=== PATIENT | male | born 1965 | race Caucasian/White ===

== ENCOUNTER 2017-02-27 13:35 | Observation (INO) | payer MEDICAID, OTHER ==
[~2017-02-27 13:35] MED LIST: DULO20 PO; MONT4CHW2; PRAV10 PO
[2017-02-27 13:41] VITALS: BP 167/107; PULSE 83; RESP 18; TEMP 97.9; O2SAT 97
[2017-02-27] MEDS ORDERED: ASPIRIN 81 MG CHEW TAB PO ONE (14:00)
--- NOTE | 2017-02-27 14:32 | RADRPT ---
EXAM DATE/TIME: 02/27/2017 14:13 [place] COMPARISON: No previous studies available for comparison. INDICATIONS : Chest pain. Patient complains of chest pain, right arm pain, dizziness, shortness of breath. MEDICAL HISTORY : Hypertension. SURGICAL HISTORY : None. ENCOUNTER: Initial ACUITY: 4 - 6 months PAIN SCORE: 7/10 LOCATION: Bilateral chest FINDINGS: Portable AP view of the chest demonstrates a normal-sized cardiac silhouette. No effusion, consolidat ion, or pneumothorax is visualized. The bones and soft tissues demonstrate no acute abnormality. CONCLUSION: No acute cardiopulmonary abnormality is identified. Willard Parry MD on February 27, 2017 at 14:30 Board Certified Radiologist. This report was verified electronically.
[2017-02-27 14:50] LABS: AUTOMATED NEUTROPHIL # 4.5 TH/MM3 (1.8-7.7); BASOPHIL % 0.5 % (0.0-2.0); EOSINOPHIL # 0.4 TH/MM3 (0-0.4); EOSINOPHIL % 4.7 % (0.0-4.0); HEMATOCRIT 46.3 % (39.0-51.0); HEMO FLAGS DIFF FINAL; LYMPH % 31.6 % (9.0-44.0); LYMPHOCYTE # 2.7 TH/MM3 (1.0-4.8); MEAN CELL VOLUME 88.1 FL (80.0-100.0); MEAN CORPUSCULAR HGB CONC 34.1 % (32.0-36.0); NEUT % 53.2 % (16.0-70.0); PLATELET COUNT 222 TH/MM3 (150-450); RED BLOOD COUNT 5.25 MIL/MM3 (4.50-5.90); RED CELL DISTRIBUTION WIDTH 13.3 % (11.6-17.2); WHITE BLOOD COUNT 8.4 TH/MM3 (4.0-11.0)
[2017-02-27 15:08] LABS: ANION GAP 4 MEQ/L (5-15); BICARBONATE 31.4 MEQ/L (21.0-32.0); BLOOD UREA NITROGEN 15 MG/DL (7-18); CHLORIDE 102 MEQ/L (98-107); CREATINE KINASE 96 U/L (39-308); GLOMERULAR FILTRATION RATE 83 ML/MIN (>89); MAGNESIUM 2.3 MG/DL (1.5-2.5); POTASSIUM 4.3 MEQ/L (3.5-5.1); SODIUM (NA) 137 MEQ/L (136-145)
[2017-02-27 15:09] LABS: APTT (PATIENT) 26.4 SEC (24.3-30.1); PROTHROMBIN TIME - PATIENT 11.1 SEC (9.8-11.6)
[2017-02-27] MEDS ORDERED: PRAV40TA2 PO (15:59)
[2017-02-27] MEDS ORDERED: SODIUM CHLORIDE 0.9% FLUSH 10 ML FLUSH IV FLUSH PRN (16:30)
--- NOTE | 2017-02-27 16:30 | PD ---
HPI . Right arm pain Chief Complaint: Chest Pain Time Seen by Provider: 16:02 Travel History International Travel<30 days: No Contact w/Intl Traveler<30days: No Traveled to known affect area: No History of Present Illness HPI Patient presents with chief complaint of right arm and right upper chest pain. Onset was in August. He states that he was exerting himself at the time. The pain subsided. He subsequently followed up with his primary care provider who instructed him to present to the emergency department if the pain recurred. He states that he has had frequent episodes of right arm and right upper chest pain all with exertion within the last week or 2. He states that it was especially bad last night and that he had associated nausea, dizziness and diaphoresis. He is currently pain-free. The patient states that he was found to have borderline hypertension by his primary care provider. He has been monitoring his blood pressure. His blood pressure has been running approximately 140/90. The patient reports a strong family history for coronary artery disease. [facility] Past Medical History Triglycerides - High: Yes Social History Alcohol Use: Yes (frequently) Tobacco Use: No Substance Use: No Allergies-Medications (Allergen,Severity, Reaction): Coded Allergies: No Known Allergies (Unverified , 10/26/11) Reported Meds & Prescriptions Reported Meds & Active Scripts Active Reported Pravastatin 40 Mg Tab 40 Mg PO DAILY Review of Systems Except as stated in HPI: all other systems reviewed are Neg General / Constitutional: Positive: Other (diaphoresis) HENT: Positive: Lightheadedness Cardiovascular: Positive: Chest Pain or Discomfort Gastrointestinal: Positive: Nausea Physical Exam Narrative GENERAL: Healthy-appearing man in no acute distress. SKIN: warm/dry. HEAD: Normocephalic. Atraumatic. EYES: Pupils equal and round. No scleral icterus. No injection or drainage. ENT: No nasal bleeding or discharge. Mucous membranes pink and moist. NECK: Trachea midline. Full range of motion without pain.. CARDIOVASCULAR: Regular rate and rhythm. Heart sounds normal. RESPIRATORY: No accessory muscle use. Clear to auscultation. Breath sounds equal bilaterally. GASTROINTESTINAL: Abdomen soft. Nontender. Bowel sounds present. Nondistended. MUSCULOSKELETAL: No obvious deformities. NEUROLOGICAL: Awake and alert. No obvious cranial nerve deficits. Motor grossly within normal limits. Normal speech. PSYCHIATRIC: Appropriate mood and affect; insight and judgment normal. Data Data Last Documented VS Vital Signs Date Time Temp Pulse Resp B/P (MAP) Pulse Ox O2 Delivery O2 Flow Rate FiO2 02/27/17 15:57 77 18 98 Room Air 02/27/17 13:41 97.9 167/107 (127) Orders Orders Electrocardiogram (02/27/17 13:56) Basic Metabolic Panel (Bmp) (02/27/17 13:56) Ckmb (Isoenzyme) Profile (02/27/17 13:56) Complete Blood Count With Diff (02/27/17 13:56) Magnesium (Mg) (02/27/17 13:56) Prothrombin Time / Inr (Pt) (02/27/17 13:56) Act Partial Throm Time (Ptt) (02/27/17 13:56) Troponin I (02/27/17 13:56) Chest, Single Ap (02/27/17 13:56) Aspirin Chew (Aspirin Chew) (02/27/17 14:00) Place In Observation (02/27/17 16:22) Activity Bed Rest With Brp (02/27/17 16:22) Vital Signs (Adult) Q4H (02/27/17 16:22) Cardiac Rhythm .As Directed (02/27/17 16:22) Notify Dr: Other .PRN (02/27/17 16:22) Notify Dr. Parameters (02/27/17 16:22) Resp Oxygen Nasal Cannula (02/27/17 ) Ckmb (Isoenzyme) Profile (02/27/17 17:20) Ckmb (Isoenzyme) Profile (02/27/17 20:20) Troponin I (02/27/17 17:20) Troponin I (02/27/17 20:20) Electrocardiogram (02/27/17 17:20) Electrocardiogram (02/27/17 20:20) ^ Obtain (02/27/17 16:22) Sodium Chloride 0.9% Flush (Ns Flush) (02/27/17 16:30) Sodium Chloride 0.9% Flush (Ns Flush) (02/27/17 21:00) Tmd Teacher / Telemetry [id number] (02/27/17 16:22) Admit Order (Ed Use Only) (02/27/17 16:22) Labs Laboratory Tests Test 02/27/17 14:20 White Blood Count 8.4 TH/MM3 Red Blood Count 5.25 MIL/MM3 Hemoglobin 15.8 GM/DL Hematocrit 46.3 % Mean Corpuscular Volume 88.1 FL Mean Corpuscular Hemoglobin 30.0 PG Mean Corpuscular Hemoglobin Concent 34.1 % Red Cell Distribution Width 13.3 % Platelet Count 222 TH/MM3 Mean Platelet Volume 7.9 FL Neutrophils (%) (Auto) 53.2 % Lymphocytes (%) (Auto) 31.6 % Monocytes (%) (Auto) 10.0 % Eosinophils (%) (Auto) 4.7 % Basophils (%) (Auto) 0.5 % Neutrophils # (Auto) 4.5 TH/MM3 Lymphocytes # (Auto) 2.7 TH/MM3 Monocytes # (Auto) 0.8 TH/MM3 Eosinophils # (Auto) 0.4 TH/MM3 Basophils # (Auto) 0.0 TH/MM3 CBC Comment DIFF FINAL Differential Comment Prothrombin Time 11.1 SEC Prothromb Time International Ratio 1.0 RATIO Activated Partial Thromboplast Time 26.4 SEC Blood Urea Nitrogen 15 MG/DL Creatinine 0.96 MG/DL Random Glucose 88 MG/DL Calcium Level 9.2 MG/DL Magnesium Level 2.3 MG/DL Sodium Level 137 MEQ/L Potassium Level 4.3 MEQ/L Chloride Level 102 MEQ/L Carbon Dioxide Level 31.4 MEQ/L Anion Gap 4 MEQ/L Estimat Glomerular Filtration Rate 83 ML/MIN Total Creatine Kinase 96 U/L Troponin I LESS THAN 0.02 NG/ML MDM Medical Decision Making Medical Screen Exam Complete: Yes Emergency Medical Condition: Yes Interpretation(s) EKG shows a normal sinus rhythm with no ST segment elevation or depression Differential Diagnosis Differential diagnosis of chest pain includes but is not limited to musculoskeletal pain, pulmonary embolism, acute coronary syndrome, pneumonia, pleurisy Narrative Course This patient presents with right arm and chest pain associated with exertion. CBC & BMP Diagram 02/27/17 14:20 Calcium Level 9.2, Magnesium Level 2.3 trop < 0.02 CK 96 Last Impressions Chest X-Ray 02/27/17 1356 Signed Impressions: Service Date/Time: Monday, February 27, 2017 14:13 - CONCLUSION: No acute cardiopulmonary abnormality is identified. Willard Parry MD I have discussed disposition with the patient. I have recommended admission to the chest pain center for stress test. The patient is agreeable. Diagnosis Primary Impression: Chest pain Qualified Codes: R07.9 - Chest pain, unspecified Admitting Information Admitting Physician Requests: Observation Condition: Stable Hollie Wang MD Feb 27, 2017 16:30
[2017-02-27] MEDS ORDERED: ACETAMINOPHEN/HYDROcodone 325 MG/7.5 MG TAB PO PRN (17:00)
[2017-02-27] MEDS ORDERED: ACETAMINOPHEN 500 MG CPLT PO PRN (17:00)
[2017-02-27] MEDS ORDERED: RESP: ALBUTEROL 2.5 MG/IPRATROPIUM 0.5 MG NEB (PRN) INH (17:00)
[2017-02-27] MEDS ORDERED: ALPRAZolam 0.25 MG TAB PO PRN (17:00)
[2017-02-27] MEDS ORDERED: ONDANSETRON HCL 4 MG/2 ML VIAL IV PUSH PRN (17:00)
[2017-02-27] MEDS ORDERED: TEMAZEPAM 15 MG CAP PO PRN (17:00)
[2017-02-27] MEDS ORDERED: cloNIDine HCL 0.1 MG TAB PO PRN (17:00)
[2017-02-27] MEDS ORDERED: SODIUM CHLORIDE 0.9% FLUSH 5 ML FLUSH IVF PRN (17:00)
--- NOTE | 2017-02-27 17:00 | HHI.HP ---
HPI Primary Care Physician Unknown Chief Complaint Chest pain History of Present Illness This is a 51-year-old male that presents to ED via private vehicle with a complaint of intermittent right arm/right chest pain since August. States the first episode occurred while he was doing a long walk. States that the pain radiated from the right arm up into the right chest. It resolved about an hour after he stopped walking. No other associated symptoms. He saw his primary care physician who advised him if it recurs to go to the ED. He states that since then the discomfort will occur if he walks a long distance. He will use a resolve 1 hour after he stops the walk. Usually no associated symptoms. Then yesterday and he woke up with the same type of discomfort in the right arm and chest also feeling sweaty, nauseous, and lightheaded. This also lasted about an hour. Then this morning he developed a discomfort in the right arm while playing the guitar and decided to come to the ED for evaluation. He cannot recall prior cardiac evaluation but states there is CAD in his family. States his mother has multiple stents with onset in her mid to late 60s. He denies hyperlipidemia but states takes pravastatin prescribed by his PCP prophylactically for his mother's cardiac history. He also states his blood pressure has been running a little higher lately but still no medication prescribed. Denies history of diabetes or CAD. Review of Systems General: Patient denies fevers, chills recent, and recent travel HEENT: Patient denies headache, sore throat, difficulty swallowing. Cardiovascular: Has the chest discomfort as mentioned above. Denies sensation of heart beating rapidly or irregularly. No syncope. He was diaphoretic yesterday. [place] lightheaded yesterday. Respiratory: Denies shortness of breath or inspirational chest discomfort. Denies coughing wheezing or hemoptysis. GI: He was nauseous yesterday. Patient denies vomiting, diarrhea, abdominal pain, bloody stools. Musculoskeletal: Patient denies joint pain or edema. Denies calf pain or edema. Neurovascular: Patient denies numbness, tingling, weakness in extremities. Denies headache. Endocrine: Denies polyuria and polydipsia. Hematologic: Denies easy bruising. Skin: Denies rash or itching. Past Family Social History Allergies: Coded Allergies: No Known Allergies (Unverified , 7/5/12) Past Medical History Denies hypertension although he states his blood pressure been running higher lately. Denies hyperlipidemia, diabetes, CAD. Reported Medications Reported Meds & Active Scripts Active Reported Pravastatin 40 Mg Tab 40 Mg PO DAILY Active Ordered Medications Current Medications Medications (Trade) Dose Ordered Sig/Nicolas Route Start Time Stop Time Status Last Admin (NS Flush) 2 ml UNSCH PRN IV FLUSH 02/27/17 16:30 (NS Flush) 2 ml BID IV FLUSH 02/27/17 21:00 Family History His mother has CAD with stents with onset in her mid to late 60s. Social History Remote past history of tobacco abuse. Patient states he smoked one pack of cigarettes for about one year which was 10 years ago but smoked really nothing prior to that and nothing since. Has on average 1-2 glasses of wine per day. Denies illicit drugs. He is with 2 children. He works in cabinetry. Physical Exam Vital Signs Vital Signs Date Time Temp Pulse Resp B/P (MAP) Pulse Ox O2 Delivery O2 Flow Rate FiO2 02/27/17 15:57 77 18 98 Room Air 02/27/17 13:41 97.9 83 18 167/107 (127) 97 Room Air Physical Exam GENERAL: This is a well-nourished, well-developed patient, in no apparent distress. Patient speaks in clear complete sentences. Patient is pleasant. HEENT: Head is atraumatic and normocephalic. Neck is supple without lymphadenopathy and trachea is midline. No JVD or carotid bruits. CARDIOVASCULAR: Regular rate and rhythm without murmurs, gallops, or rubs. RESPIRATORY: Clear to auscultation. Breath sounds equal bilaterally. No wheezes , rales, or rhonchi. Chest wall is nontender. No use of accessory muscles. GASTROINTESTINAL: Abdomen is nontender, nondistended. Abdomen soft. No obvious pulsatile mass or bruit. No CVA tenderness. Strong femoral pulses bilaterally. Normal bowel sounds in all quadrants. MUSCULOSKELETAL: Patient is moving upper and lower extremities freely. No calf tenderness or edema, no Homans sign. Strong pulses in upper and lower extremities. NEUROLOGICAL: Patient is alert and oriented. Cranial nerves 2-12 are grossly intact. No focal deficits and speech is clear. SKIN: No rash and turgor is normal. Laboratory Laboratory Tests Test 02/27/17 14:20 White Blood Count 8.4 Red Blood Count 5.25 Hemoglobin 15.8 Hematocrit 46.3 Mean Corpuscular Volume 88.1 Mean Corpuscular Hemoglobin 30.0 Mean Corpuscular Hemoglobin Concent 34.1 Red Cell Distribution Width 13.3 Platelet Count 222 Mean Platelet Volume 7.9 Neutrophils (%) (Auto) 53.2 Lymphocytes (%) (Auto) 31.6 Monocytes (%) (Auto) 10.0 Eosinophils (%) (Auto) 4.7 Basophils (%) (Auto) 0.5 Neutrophils # (Auto) 4.5 Lymphocytes # (Auto) 2.7 Monocytes # (Auto) 0.8 Eosinophils # (Auto) 0.4 Basophils # (Auto) 0.0 CBC Comment DIFF FINAL Differential Comment Prothrombin Time 11.1 Prothromb Time International Ratio 1.0 Activated Partial Thromboplast Time 26.4 Blood Urea Nitrogen 15 Creatinine 0.96 Random Glucose 88 Calcium Level 9.2 Magnesium Level 2.3 Sodium Level 137 Potassium Level 4.3 Chloride Level 102 Carbon Dioxide Level 31.4 Anion Gap 4 Estimat Glomerular Filtration Rate 83 Total Creatine Kinase 96 Troponin I LESS THAN 0.02 Result Diagram: 02/27/17 1420 02/27/17 1420 Imaging Last 48 hours Impressions Chest X-Ray 02/27/17 1356 Signed Impressions: Service Date/Time: Monday, February 27, 2017 14:13 - CONCLUSION: No acute cardiopulmonary abnormality is identified. Willard Parry MD Course Initial EKG has sinus rhythm rate of [address] segment depressions or elevations. Caprini VTE Risk Assessment Caprini VTE Risk Assessment: No/Low Risk (score <= 1) Caprini Risk Assessment Model Point Value = 1 Point Value = 2 Point Value = 3 Point Value = 5 Age 41-60 Minor surgery BMI > 25 kg/m2 Swollen legs Varicose veins or History of unexplained or recurrent spontaneous Oral contraceptives or hormone replacement Sepsis (< 1 month) Serious lung disease, including pneumonia (< 1 month) Abnormal pulmonary function Acute myocardial infarction Congestive heart failure (< 1 month) History of inflammatory bowel disease Medical patient at bed rest Age 61-74 Arthroscopic surgery Major open surgery (> 45 min) Laparoscopic surgery (> 45 min) Malignancy Confined to bed (> 72 hours) Immobilizing plaster cast Central venous access Age >= 75 History of VTE Family history of VTE Factor V Leiden Prothrombin [id number] Lupus anticoagulant Anticardiolipin antibodies Elevated serum homocysteine Heparin-induced thrombocytopenia Other congenital or acquired thrombophilia Stroke (< 1 month) Elective arthroplasty Hip, pelvis, or leg fracture Acute spinal cord injury (< 1 month) Prophylaxis Regimen Total Risk Factor Score Risk Level Prophylaxis Regimen 0-1 Low Early ambulation 2 Moderate Order ONE of the following: *Sequential Compression Device (SCD) *Heparin 5000 units SQ BID 3-4 Higher Order ONE of the following medications: *Heparin 5000 units SQ TID *Enoxaparin/Lovenox 40 mg SQ daily (WT < 150 kg, CrCl > 30 mL/min) *Enoxaparin/Lovenox 30 mg SQ daily (WT < 150 kg, CrCl > 10-29 mL/min) *Enoxaparin/Lovenox 30 mg SQ BID (WT < 150 kg, CrCl > 30 mL/min) AND/OR *Sequential Compression Device (SCD) 5 or more Highest Order ONE of the following medications: *Heparin 5000 units SQ TID (Preferred with Epidurals) *Enoxaparin/Lovenox 40 mg SQ daily (WT < 150 kg, CrCl > 30 mL/min) *Enoxaparin/Lovenox 30 mg SQ daily (WT < 150 kg, CrCl > 10-29 mL/min) *Enoxaparin/Lovenox 30 mg SQ BID (WT < 150 kg, CrCl > 30 mL/min) AND *Sequential Compression Device (SCD) Assessment and Plan Assessment and Plan * Chest pain: Patient will continue to have serial cardiac enzymes and EKGs for ruling out purposes and will be seen by Dr. Brandt Beard of cardiology in the chest pain center in the morning. Likely proceed with stress testing if he rules out. Patient will be discharged home if stress test is nonischemic with instructions to follow-up with PCP and to return to ED for interval issues. Patient is stable at this time. He is agreeable to this plan. Oskar Jean Feb 27, 2017 17:00
[2017-02-27] MEDS: PANTOPRAZOLE SOD 40 MG DELAYED RELEASE TAB PO SCH (17:05)
[2017-02-27 17:19] VITALS: BP 146/93; PULSE 69; RESP 18; O2SAT 98
[2017-02-27 17:52] VITALS: BP 132/87; PULSE 65; RESP 16; TEMP 98; O2SAT 97
[2017-02-27 18:03] LABS: CREATINE KINASE 83 U/L (39-308)
[2017-02-27 20:22] VITALS: BP 118/79; PULSE 74; RESP 18; TEMP 97.5; O2SAT 95
[2017-02-27] MEDS: SODIUM CHLORIDE 0.9% FLUSH 5 ML FLUSH IVF SCH (20:45)
[2017-02-27] MEDS ORDERED: SODIUM CHLORIDE 0.9% FLUSH 10 ML FLUSH IV FLUSH SCH (21:00)
[2017-02-27 21:36] LABS: CREATINE KINASE 79 U/L (39-308)
[2017-02-27 23:24] VITALS: BP 123/77; PULSE 58; PULSE 59; RESP 18; TEMP 98; O2SAT 96
[2017-02-28 03:01] VITALS: BP 125/76; PULSE 66; RESP 19; TEMP 97.8; O2SAT 95
[2017-02-28 04:00] VITALS: PULSE 59
[2017-02-28 08:07] VITALS: O2SAT 96
[2017-02-28 08:10] VITALS: BP 120/75; PULSE 62; RESP 16; TEMP 97.8; O2SAT 95
[2017-02-28 08:11] VITALS: PULSE 63
[2017-02-28] MEDS: SODIUM CHLORIDE 0.9% FLUSH 5 ML FLUSH IVF SCH (08:53)
[2017-02-28] MEDS: PANTOPRAZOLE SOD 40 MG DELAYED RELEASE TAB PO SCH (08:54)
[2017-02-28] MEDS ORDERED: ASPIRIN 325 MG TAB PO SCH (09:00)
--- NOTE | 2017-02-28 10:50 | HHI.DCPOC ---
Discharge Care Plan Diagnosis: (1) Chest pain Goals to Promote Your Health * To prevent worsening of your condition and complications * To maintain your health at the optimal level Directions to Meet Your Goals Take your medications as prescribed Follow your dietary instruction Follow activity as directed Keep your appointments as scheduled Take your immunizations and boosters as scheduled If your symptoms worsen call your PCP, if no PCP go to Urgent Care Center or Emergency Room Smoking is Dangerous to Your Health. Avoid second hand smoke Call the 24-hour hour crisis hotline for domestic abuse at Oskar Jean Feb 28, 2017 10:50
--- NOTE | 2017-02-28 12:39 | EKG ---
Date Performed: 02/27/2017 Time Performed: 21:03:48 PTAGE: 51 years EKG: SINUS BRADYCARDIA INCOMPLETE RIGHT BUNDLE BRANCH BLOCK BORDERLINE ECG PREVIOUS TRACING : 02/27/2017 17.17 Since previous tracing, no significant change noted DOCTOR: Brandt Beard Interpretating Date/Time 02/28/2017 12:38:15
--- NOTE | 2017-02-28 12:40 | EKG ---
Date Performed: 02/27/2017 Time Performed: 17:17:55 PTAGE: 51 years EKG: Sinus rhythm INCOMPLETE RIGHT BUNDLE BRANCH BLOCK ABNORMAL ECG PREVIOUS TRACING : 02/27/2017 15.59 Since previous tracing, no significant change noted DOCTOR: Brandt Beard Interpretating Date/Time 02/28/2017 12:39:18
--- NOTE | 2017-02-28 12:41 | EKG ---
Date Performed: 02/27/2017 Time Performed: 15:59:54 PTAGE: 51 years EKG: Sinus rhythm NORMAL ECG NO PREVIOUS TRACING DOCTOR: Brandt Beard Interpretating Date/Time 02/28/2017 12:39:39
--- NOTE | 2017-02-28 12:47 | TR ---
Date Performed: 02/28/2017 Time Performed: 10:14:14 DOCTOR: Brandt Beard DRUG LIST: CLINICAL HISTORY: REASON FOR TEST: REASON FOR ENDING: OBSERVATION: CONCLUSION: JATIN PROTOCOL. NO CP. TEST STOPPED AFTER EXCEEDING GOAL HR SECONDARY TO SOB AND LEG FATIGUE.Maximum EN=642 % Max HR Achieved=94.0% % Target HR Achieved=94.0% Total Exercise Time=10:31 COMMENTS: Patient exercised using the Jatin protocol. No electrocardiographic changes were seen to suggest ischemia. Hemodynamic response to exercise was normal. No significant arrhythmia was prese nt.
== END 2017-02-28 11:53 | disposition home or self-care (01) ==
LOC: NEPE 13:35 → NEDA 16:25 → NEPFCDU 17:52
PROVIDERS: ADMIT Internal Medicine Interventional Cardiology; ATTEND Internal Medicine Interventional Cardiology
DX: R07.9 Chest pain, unspecified (principal); M79.621 Pain in right upper arm; R61 Generalized hyperhidrosis; R42 Dizziness and giddiness; R11.0 Nausea; Z82.49 Family history of ischemic heart disease and other diseases of the circulatory system; R03.0 Elevated blood-pressure reading, without diagnosis of hypertension; Z87.891 Personal history of nicotine dependence; I45.10 Unspecified right bundle-branch block
CPT/HCPCS: 71010; 80048; 82550; 83735; 84484; 85025; 85610; 85730; 93005; 93017; 99285; G0378